=== PATIENT | male | born 1960 | race Caucasian/White ===

== ENCOUNTER 2016-10-31 12:58 | Emergency (ER) | payer BC ==
[2016-10-31] MEDS ORDERED: ED CLINDAMYCIN PREMIX 50 ML IV ONE (13:37)
== END 2016-10-31 14:40 | disposition home or self-care (01) ==
LOC: ER 12:58
DX: L03.116 Cellulitis of left lower limb (principal)
CPT/HCPCS: 36415; 85025; 85652; 96365

== ENCOUNTER 2016-11-22 07:53 | Emergency (ER) | payer BC ==
[2016-11-22] MEDS ORDERED: OPTIRAY 350 100 ML VIAL HMH IV ONE (07:54)
[2016-11-22] MEDS ORDERED: ASPIRIN 81 MG CHEW TAB ONE (08:08)
== END 2016-11-22 11:19 | disposition home or self-care (01) ==
LOC: ER 07:53
DX: R07.2 Precordial pain (principal)
CPT/HCPCS: 36415; 71010; 71260; 80053; 82550; 83690; 83735; 83880; 84484; 85025; 85379; 85610; 85730; 93005